=== PATIENT | male | born 1980 | race African-American/Black ===

== ENCOUNTER 2016-08-26 20:12 | Emergency (ER) | payer OTHER | END 2016-08-26 21:54 | disposition home or self-care (01) | LOC: FER 20:12 | DX: M79.672 Pain in left foot (principal); Z88.0 Allergy status to penicillin | CPT/HCPCS: 73630; J1100; J1885 ==

== ENCOUNTER 2020-07-24 13:50 | Emergency (ER) | payer OTHER ==
[~2020-07-24 13:50] MED LIST: BACTRIM DS TAB1 EACH PO; DICLOFENAC SODI75 MG PO; IBUPROFEN800 MG PO
[2020-07-24] MEDS ORDERED: NORCO 5-325 TA1 EACH PO (17:31)
== END 2020-07-24 19:14 | disposition home or self-care (01) ==
LOC: FER 13:50
DX: M25.572 Pain in left ankle and joints of left foot (principal); M79.672 Pain in left foot; T84.098A Other mechanical complication of other internal joint prosthesis, initial encounter; M24.672 Ankylosis, left ankle; I10 Essential (primary) hypertension; Z88.0 Allergy status to penicillin; Z98.890 Other specified postprocedural states; Y79.8 Miscellaneous orthopedic devices associated with adverse incidents, not elsewhere classified
CPT/HCPCS: 36415; 73600; 84550; J1885

== ENCOUNTER 2020-12-07 21:01 | Emergency (ER) | payer OTHER ==
[~2020-12-07 21:01] MED LIST changes: +NORCO 5-325 TA1 EACH PO
[2020-12-08] MEDS ORDERED: ULTRAM50 MG PO (00:46)
== END 2020-12-08 01:10 | disposition home or self-care (01) ==
LOC: FER 21:01
DX: M25.572 Pain in left ankle and joints of left foot (principal); I10 Essential (primary) hypertension; Z88.0 Allergy status to penicillin; Z79.899 Other long term (current) drug therapy
CPT/HCPCS: 73610; 73630

== ENCOUNTER 2020-12-23 13:38 | Emergency (ER) | payer OTHER ==
[~2020-12-23 13:38] MED LIST changes: +ULTRAM50 MG PO
[2020-12-23 14:29] LABS: BASOPHIL 0.2 % (0-2); EOSINOPHIL 0.2 % (0-5); HCT 40.2 % (42.0-52.0); HGB 13.6 g/dl (13.2-18.0); LYMPHOCYTE 7.8 % (15-48); MCH 29.4 pg (25.0-31.0); MCHC 33.8 g/dL (32.0-36.0); MCV 86.8 fL (78.0-100.0); MONOCYTE 4.6 % (0-12); NEUTROPHIL 86.6 % (41-80); NRBC 0; PLT 308 K/uL (150-400); RBC 4.63 M/uL (4.70-6.00); RDW 14.6 % (11.5-14.0); WBC 20.3 K/uL (4.0-10.5)
[2020-12-23 14:43] LABS: BILIRUBIN - TOTAL 0.5 mg/dL (0.2-1.0); POTASSIUM 3.4 mmol/L (3.5-5.1)
[2020-12-23 15:40] LABS: BILIRUBIN NEGATIVE (NEGATIVE); BLOOD TRACE-LYSED Ery/uL (NEGATIVE); CLARITY CLEAR (CLEAR); COLOR YELLOW (YELLOW); GLUCOSE (U) NORMAL (NORMAL); LEUKOCYTES NEGATIVE Leu/uL (NEGATIVE); NITRITE NEGATIVE (NEGATIVE); PROTEIN NEGATIVE (NEGATIVE); SPECIFIC GRAVITY >=1.030 (1.001-1.030); UROBILINOGEN 0.2 mg/dL (0.2-1.0); pH 5.5 (5.0-9.0)
[2020-12-23 15:47] LABS: URINARY WBC RARE
[2020-12-23 15:48] LABS: SQUAMOUS EPITHELIAL CELLS RARE
[2020-12-23 16:32] LABS: CORONAVIRUS 2019 SARS-COV-2 NEGATIVE (NEGATIVE); INFLUENZA A NAA NEGATIVE (NEGATIVE)
[2020-12-23] MEDS ORDERED: LEVAQUIN500 MG PO (19:56)
[2020-12-23] MEDS ORDERED: METRONIDAZOLE500 MG PO (19:56)
== END 2020-12-23 20:15 | disposition home or self-care (01) ==
LOC: FER 13:38
PROVIDERS: Nurse Practitioner Family
DX: J18.9 Pneumonia, unspecified organism (principal); K52.9 Noninfective gastroenteritis and colitis, unspecified; Z20.822 Contact with and (suspected) exposure to COVID-19; Z98.890 Other specified postprocedural states
CPT/HCPCS: 36415; 71045; 80053; 81001; 83605; 85025; 87040; J0456; J2405; J7030; J7050; Q9967; U0002

== ENCOUNTER 2021-07-22 22:26 | Emergency (ER) | payer OTHER ==
[~2021-07-22 22:26] MED LIST changes: +LEVAQUIN500 MG PO; +METRONIDAZOLE500 MG PO
[2021-07-22 23:12] LABS: BASOPHIL 0.3 % (0-2); EOSINOPHIL 1.3 % (0-5); HCT 45.2 % (42.0-52.0); HGB 14.9 g/dl (13.2-18.0); LYMPHOCYTE 23.3 % (15-48); MCH 28.9 pg (25.0-31.0); MCV 87.6 fL (78.0-100.0); MONOCYTE 4.9 % (0-12); MPV 9.1 fL (6.0-9.5); NEUTROPHIL 69.9 % (41-80); NRBC 0; PLT 298 K/uL (150-400); RBC 5.16 M/uL (4.70-6.00); RDW 13.5 % (11.5-14.0); WBC 14.5 K/uL (4.0-10.5)
[2021-07-22 23:28] LABS: BUN/CREAT RATIO (CALC) 17.8 RATIO; CREATININE 1.01 mg/dL (0.67-1.17); POTASSIUM 3.4 mmol/L (3.5-5.1)
== END 2021-07-23 01:03 | disposition home or self-care (01) ==
LOC: FER 22:26
PROVIDERS: Nurse Practitioner Family
DX: M79.605 Pain in left leg (principal); U07.1 COVID-19; I10 Essential (primary) hypertension; Z88.0 Allergy status to penicillin
CPT/HCPCS: 36415; 80048; 85025; 85379; 93971

== ENCOUNTER 2021-08-09 01:14 | Emergency (ER) | payer OTHER | END 2021-08-09 02:34 | disposition home or self-care (01) | LOC: FER 01:14 | DX: M25.562 Pain in left knee (principal); I10 Essential (primary) hypertension | CPT/HCPCS: J1885 ==

== ENCOUNTER 2022-03-23 16:26 | Emergency (ER) | payer OTHER ==
[2022-03-23] MEDS ORDERED: NORCO 5-325 TA1 EACH PO (19:16)
== END 2022-03-23 20:13 | disposition home or self-care (01) ==
LOC: FER 16:26
DX: S86.911A Strain of unspecified muscle(s) and tendon(s) at lower leg level, right leg, initial encounter (principal); I10 Essential (primary) hypertension; Z88.0 Allergy status to penicillin; Z79.899 Other long term (current) drug therapy; X50.1XXA Overexertion from prolonged static or awkward postures, initial encounter
CPT/HCPCS: 73560